=== PATIENT | male | born 1995 | race Two or more races ===

== ENCOUNTER 2016-08-13 11:30 | Emergency (ER) | payer SELFPAY ==
--- NOTE | 2016-08-13 11:41 | PDOC ---
Attending Attestation - Resident Resident Name: Sarai Gony - ED Attending Attestation I have performed the following: I have examined & evaluated the patient, The case was reviewed & discussed with the resident, I agree w/resident's findings & plan, Exceptions are as noted - HPI HPI: 08/13/16 11:40 The patient is a 20-year-old male, immunocompetent, with no significant past medical history, presenting to the emergency department with fever and sore throat for the past 3 days. He denies cough, dyspnea. He denies neck pain or stiffness. He denies nausea, vomiting, diarrhea. He denies rash. 08/13/16 11:56 - Physicial Exam PE: 08/13/16 11:40 The patient is well-appearing and in no acute distress Vitals noted His oxygen saturation was initially 95 percent but has increased I suspect erroneous reading of 95% as he has no pulmonary symptoms or signs He has mild, posterior pharyngeal erythema, without tonsillar edema or exudate Uvula is midline Lungs are clear to auscultation bilaterally Abdomen is soft and non-tender Neck is supple He has no rash 08/13/16 12:53 Repeat exam with the patinet very well appearing 02 sats continue to fluctuate 95-98 I suspect poor pleth He is not tacypneic He is not coughing His lungs are clear bilaterally iwthout wheeze or crackles I do not feel that linda benefits of CXR outweigh the risks in this young and healthy patient without pulmonary symptoms, who can have clo9se follow up, and in whom I suspect the intermittently/mildly low and 02 saturation to be erroneous - Medical Decision Making 08/13/16 11:57 The patient is very well-appearing and in no acute distress He states that he feels "much better" after receiving 200 mg of ibuprofen He does not have any evidence of a focal bacterial infection His clinical presentation is most consistent with a viral upper respiratory tract infection He is outside the window for treatment with Tamiflu, and he is extremely well- appearing, without any evidence of advanced influenza We discussed the risks and benefits of further evaluation with chest x-ray and labs, and the patient adamantly preferred to avoid further evaluation Will provide antipyresis and observe 08/13/16 12:20 The patient continues to be very well-appearing and in no acute distress Heart rate is now less than 90 on my examination Clinical impression: Viral upper respiratory tract infection He will have his primary care physician re-check his oxygen saturation I discussed the physical exam findings, ancillary test results and final diagnoses with the patient. I answered all of the patient's questions. The patient was satisfied with the care received and felt comfortable with the discharge plan and treatment plan. The patient will call their primary care physician within 24 hours to arrange follow-up and will return to the Emergency Department with any new, persistent or worsening symptoms. 08/13/16 12:35 Discharge Disposition - Diagnosis URTI (acute upper respiratory infection) - Discharge Dispostion Disposition: HOME Condition at time of disposition: Good - Patient Instructions Printed Discharge Instructions: How to Avoid a Cold or Flu Additional Instructions: Your symptoms are most likely consistent with upper respiratory tract infection. However, the oxygen level is slightly low. Please make sure you visit Dr. Levin (Primary physician at [facility]) preferably on a Monday after 1pm. Doctor will re-evaluate you and re check the oxygen saturation. Return to the emergency department immediately with ANY new, persistent or worsening symptoms. You MUST call and follow up with your doctor tomorrow. Please make sure your doctor reviews the results of your emergency department evaluation.
[2016-08-13 11:46] VITALS: BMI 21.4
[2016-08-13] MEDS ORDERED: IBUPROFEN 600 MG TABLET (FP) PO ONE ×2 (11:57→11:58)
--- NOTE | 2016-08-13 11:57 | PDOC ---
History of Present Illness - General Chief Complaint: Cold Symptoms Stated Complaint: FEVER, SORE THROAT, N/V Time Seen by Provider: 08/13/16 11:40 History Source: Patient Exam Limitations: No Limitations - History of Present Illness Initial Comments: 08/13/16 11:58 CHIEF COMPLAINT: Fever and sore throat PCP: No PCP, upon discharge will refer to Dr. Levin. HISTORY OF PRESENT ILLNESS: 20 year old male with no significant past medical history presented to the ED via EMS with the chief complaints of fever and sore throat. A/c to the patient, it started with sore throat 3 days ago, slowly progressing to worse, associated with fever x 2 days, Tmax 102.8F, with chills, sweating but no rigor. No sick contacts. Received flu shot. Denies runny nose, sinus pain, cough, palpitation, sob. Patient reports to have nausea and one episode of vomiting, non projectile, containing food particles. No abdominal pain. Patient mentions he is a [facility] citizen and came back from [place], [facility] and [facility] at the end of . Bowel/Bladder habit normal. Appetite decreased. Sleep disturbed since illness. Patient reports he frequency experiences clicking sound on the left ear which resolves after using nasal spray, his mom told him he has ear clogging problem since childhood. As per EMS, Temp-102, Spo2-95%, was given 200mg of Motrin by the nurse at the [facility] . Recent Travel: [place], [place] and [facility]. PAST MEDICAL HISTORY: None PAST SURGICAL HISTORY: None Occupation: Student at [employer], [place] Social History: Smoking: Occasional. Alcohol: Denies Drugs: Denies Family History: Unknown Allergies: NKDA Past History - Past Medical History Allergies/Adverse Reactions: Allergies Allergy/AdvReac Type Severity Reaction Status Date / Time No Known Allergies Allergy Verified 08/13/16 11:47 Home Medications: Ambulatory Orders NK [No Known Home Medication] 08/13/16 - Immunization History Immunization Up to Date: Yes - Psycho/Social/Smoking Cessation Hx Anxiety: No Suicidal Ideation: No Smoking History: Never smoked Hx Alcohol Use: Yes (OCCASIONAL) Drug/Substance Use Hx: No Substance Use Type: None Review of Systems - Review of Systems Able to Perform ROS?: Yes Comments:: 02/25/17 12:07 CONSTITUTIONAL: Present: fever, chills, diaphoresis, generalized weakness Absent: malaise, loss of appetite HEENT: Present: difficulty swallowing, clicking sound in the left ear Absent: rhinorrhea, nasal congestion, throat pain, throat swelling, mouth swelling, ear pain, eye pain, visual Changes CARDIOVASCULAR: Absent: chest pain, syncope, palpitations, irregular heart rate, lightheadedness , peripheral edema RESPIRATORY: Absent: cough, shortness of breath, dyspnea with exertion, orthopnea, wheezing, stridor, hemoptysis GASTROINTESTINAL: Absent: abdominal pain, abdominal distension, nausea, vomiting, diarrhea, constipation, melena, hematochezia GENITOURINARY: Absent: dysuria, frequency, urgency, hesitancy, hematuria, flank pain, genital pain MUSCULOSKELETAL: Absent: myalgia, arthralgia, joint swelling SKIN: Absent: rash, itching, pallor HEMATOLOGIC/IMMUNOLOGIC: Absent: easy bleeding, easy bruising, lymphadenopathy, frequent infections ENDOCRINE: Absent: unexplained weight gain, unexplained weight loss, heat intolerance, cold intolerance NEUROLOGIC: Absent: headache, focal weakness or paresthesias, dizziness, unsteady gait, seizure, mental status changes, bladder or bowel incontinence PSYCHIATRIC: Absent: anxiety, depression, suicidal or homicidal ideation, hallucinations. Is the patient limited Vietnamese proficient: No *Physical Exam - Vital Signs Last Vital Signs Temp Pulse Resp BP Pulse Ox 102.8 F H 108 H 16 132/101 95 08/13/16 11:40 08/13/16 11:40 08/13/16 11:40 08/13/16 11:40 08/13/16 11:40 08/13/16 12:11 PE: GENERAL: Awake, alert, and fully oriented, in no acute distress HEAD: No signs of trauma EYES: PERRLA, EOMI, sclera anicteric, conjunctiva clear ENT: Auricles normal inspection, hearing grossly normal, nares patent, oropharynx clear without exudates. Moist mucosa OTOSCOPE: B/L ears normal. NECK: Normal ROM, supple, no lymphadenopathy, JVD, or masses LUNGS: Breath sounds equal, clear to auscultation bilaterally. No wheezes, and no crackles.. HEART: Regular rate and rhythm, normal S1 and S2, no murmurs, rubs or gallops ABDOMEN: Soft, nontender, normoactive bowel sounds. No guarding, no rebound. No masses EXTREMITIES: Normal range of motion, no edema. No clubbing or cyanosis. No cords, erythema, or tenderness NEUROLOGICAL: Cranial nerves II through XII grossly intact. Normal speech, normal gait SKIN: Warm, Dry, normal turgor, no rashes or lesions noted. Medical Decision Making - Medical Decision Making 08/13/16 12:13 Patient seen and examined at bed side. Vitals, Temp-102F, HR-108bpm, Spo2-95% rest unremarkable. Looks comfortable. Physical examination normal including otoscopic examination. Patient received 200mg of PO Motrin. Will give him 600mg of PO Motrin stat and re-evaluate him. 08/13/16 12:34 Patient reassessed. Temperature -99F, HR-88bpm, Spo2-95% Patient feels much better. Clinical Impression: Viral Upper respiratory tract infection Plan: Patient looks comfortable, temperature reduced, HR decreased to normal, and is stable to go home Advised him to visit primary doctor this week for re-evaluation of his present condition and to check his saturation. To take motrin PRN Q6H for fever Return to the ED Immediately if symptoms persist or if he develops any new symptoms. Illness and plan of care explained to the patient. He verbalized understanding. Case seen and discussed with Dr. Casas. *DC/Admit/Observation/Transfer Diagnosis at time of Disposition: URTI (acute upper respiratory infection) - Discharge Dispostion Disposition: HOME Condition at time of disposition: Good Admit: No - Referrals Referrals: Maxx Levin MD [Staff Physician] - - Patient Instructions Printed Discharge Instructions: How to Avoid a Cold or Flu Additional Instructions: Your symptoms are most likely consistent with upper respiratory tract infection. However, the oxygen level is slightly low. Please make sure you visit Dr. Levin (Primary physician at [facility]) preferably on a Monday after 1pm. Doctor will re-evaluate you and re check the oxygen saturation. Return to the emergency department immediately with ANY new, persistent or worsening symptoms. You MUST call and follow up with your doctor tomorrow. Please make sure your doctor reviews the results of your emergency department evaluation. - Post Discharge Activity Work/School Note: Back to School
[2016-08-13 12:29] VITALS: BP 121/70; PULSE 88; TEMP 99.1
== END 2016-08-13 13:00 | disposition home or self-care (01) ==
LOC: FER 11:30
DX: J06.9 Acute upper respiratory infection, unspecified (principal)
CPT/HCPCS: 99282-25